=== PATIENT | female | born 1985 | race Caucasian/White ===

== ENCOUNTER 2019-10-20 09:08 | Emergency (ER) | payer OTHER ==
[2019-10-20 09:27] LABS: EPITHELIAL CELLS FEW /hpf
--- NOTE | 2019-10-20 09:35 | PDOC ---
History of Present Illness - General Chief Complaint: Pain, Acute Stated Complaint: abd pain Time Seen by Provider: 10/20/19 09:10 - History of Present Illness Initial Comments: 10/20/19 09:31 34 F with no PMH presents to ED with lower abdominal pain that began this morning. Pt states that she awoke at approx 5:30 AM with severe lower abdominal pain. She endorses nausea without vomiting. Pt states that she took motrin and applied a heating pad with minimal relief. After about 2 hours, the pain subsided. Pt states that she is currently on her period and has been bleeding for 3 days now. She notes that for the past few months, her menstrual cramps have become much more painful. She reports that she has had ovarian cysts in the past, but this does not feel the same. Pt denies F/C. Denies flank pain. Denies dysuria. Denies vaginal discharge. No prior surgical history. Past History - Past Medical History Allergies/Adverse Reactions: Allergies Allergy/AdvReac Type Severity Reaction Status Date / Time shellfish derived Allergy Severe Difficulty Verified 10/20/19 09:21 Breathing Home Medications: Ambulatory Orders Cetirizine HCl/Pseudoephedrine [Zyrtec-D Tablet] 1 each PO DAILY 10/20/19 Multivitamin [Multiple Vitamins] 1 each PO DAILY 10/20/19 Review of Systems - Review of Systems Comments:: 10/20/19 09:33 "GENERAL/CONSTITUTIONAL: No fever or chills. No weakness. HEAD, EYES, EARS, NOSE AND THROAT: No change in vision. No ear pain or discharge. No sore throat. CARDIOVASCULAR: No chest pain, no shortness of breath, no loss of consciousness RESPIRATORY: No cough, wheezing, or hemoptysis. GASTROINTESTINAL: No nausea, vomiting, diarrhea or constipation. GENITOURINARY: + lower abdominal cramps, No dysuria, frequency, or change in urination. MUSCULOSKELETAL: No joint or muscle swelling or pain. No neck or back pain. SKIN: No rash NEUROLOGIC: No vertigo, no change in strength/sensation. ENDOCRINE: No increased thirst. No abnormal weight change. HEMATOLOGIC/LYMPHATIC: No anemia, easy bleeding, or history of blood clots. ALLERGIC/IMMUNOLOGIC: No hives or skin allergy. *Physical Exam - Physical Exam 10/20/19 09:34 "GENERAL: Awake, alert, and fully oriented, in no acute distress. HEAD: No signs of trauma EYES: PERRLA, EOMI, sclera anicteric, conjunctiva clear ENT: Auricles normal inspection, hearing grossly normal, nares patent, oropharynx clear without exudates. Moist mucosa NECK: Nontender, no stepoffs, Normal ROM, supple, no lymphadenopathy, JVD, or masses LUNGS: Breath sounds equal, clear to auscultation bilaterally. No wheezes, and no crackles HEART: Regular rate and rhythm, normal S1 and S2, no murmurs, rubs or gallops ABDOMEN: + minimal suprapubic and bilateral lower quadrant tenderness, normoactive bowel sounds. No guarding, no rebound. No masses EXTREMITIES: Normal range of motion, no edema. No clubbing or cyanosis. No cords, erythema, or tenderness NEUROLOGICAL: Cranial nerves II through XII intact. 5/5 strength and sensation in all extremities, Normal speech, normal gait, normal cerebellar function SKIN: Warm, Dry, normal turgor, no rashes or lesions noted. : Blood in vault, no CMT, no adnexal masses/tenderness ED Treatment Course - LABORATORY CBC & Chemistry Diagram: 10/20/19 09:35 10/20/19 09:35 - ADDITIONAL ORDERS Additional order review: Laboratory Results 10/20/19 10/20/19 09:10 09:10 Urine Color Yellow Urine Appearance Slightly Urine pH 7.5 Urine Protein Trace Urine Glucose (UA) Negative Urine Ketones Negative Urine Blood 3+ H Urine Nitrite Negative Urine Bilirubin Negative Urine Urobilinogen 0.2 Ur Leukocyte Esterase Negative Urine RBC >100 Urine WBC 2-5 Ur Transition Epith Cell Few Urine HCG, Qual Negative - RADIOLOGY Radiology Studies Ordered: Category Date Time Status TRANSVAGINAL ULTRASOUND US [US] Stat Ultrasound 10/20/19 09:25 Ordered Medical Decision Making - Medical Decision Making 10/20/19 09:34 34 F with lower abdominal pain, on day 3 of her menstrual period. Pt reports worsening menstrual cramps, possibly indicative of endometriosis. Pt with minimal tenderness on exam currently. Will evaluate for ovarian torsion/cysts. Low suspicion for appendicitis, as pt without any fevers or vomiting. - Labs, UA, UPT - TVUS - Consider CT 10/20/19 11:26 Labs unremarkable TVUS shows no acute pathology. R ovary not visualized. However, low suspicion for torsion as pt with no pain at this time with no adnexal masses palpable on exam. Pt to see Dr. Gracia in his office today. Pt reassessed - states pain has subsided completely. Repeat abdominal exam benign. Low suspicion for acute intraabdominal process. No tenderness at mcburney's. Pt is well appearing, with normal vitals. Clinically stable for DC at this time. I discussed the physical exam findings, ancillary test results and final diagnoses with the patient. I answered all of the patient's questions. The patient was satisfied with the care received and felt comfortable with the discharge plan and treatment plan. The patient agrees to follow up with the primary care physician within 24-72 hours. Discharge - Discharge Information Problems reviewed: Yes Clinical Impression/Diagnosis: Dysmenorrhea Condition: Stable Disposition: HOME - Follow up/Referral Referrals: Nathaniel Kellogg MD [Primary Care Provider] - Silvio Gracia MD [Staff Physician] - - Patient Discharge Instructions Patient Printed Discharge Instructions: DI for Dysmenorrhea Additional Instructions: Your pain is likely related to your menstrual cycle and may be due to a condition called endometriosis. Please follow up with Dr. Gracia today for further evaluation of your pelvic pain. If you experience recurrent or severe pain, fevers, vomiting, or any other concerning symptoms, return to the ER immediately, as these may be signs of a serious or life-threatening condition. - Post Discharge Activity Work/Back to School Note: Back to Work
[2019-10-20 09:37] VITALS: TEMP 98.4; BMI 24.3
[2019-10-20 09:54] LABS: BASO % 0.6 % (0-2.0); EOS % 1.5 % (0-4.5); HEMOGLOBIN 13.7 GM/dl (10.7-15.3); MCH 28.8 pg (25.7-33.7); MCHC 32.6 g/dl (32.0-36.0); MEAN CELL VOLUME 88.3 fl (80-96); MEAN PLT VOLUME 9.7 fl (7.5-11.1); NEUT % 80.9 % (42.8-82.8); PLATELET COUNT 240 K/MM3 (134-434); RBC 4.76 M/mm3 (3.60-5.2); RDW 12.4 % (11.6-15.6); WHITE BLOOD COUNT 8.3 K/mm3 (4.0-10.8)
[2019-10-20 10:02] LABS: ALBUMIN 4.5 g/dl (3.4-5.0); BILIRUBIN,TOTAL 0.7 mg/dl (0.2-1); CALCIUM 9.6 mg/dl (8.5-10); CREATININE 0.8 mg/dl (0.55-1.3); POTASSIUM 3.9 mmol/L (3.5-5.1); TOT PROT 7.6 g/dl (6.4-8.2)
[2019-10-20 11:32] VITALS: BP 118/80; PULSE 67
== END 2019-10-20 11:35 | disposition home or self-care (01) ==
LOC: FER 09:08
DX: N94.6 Dysmenorrhea, unspecified (principal); Z91.013 Allergy to seafood
CPT/HCPCS: 36415; 76830-TC; 76856-TC; 80053; 81003; 81015; 83690; 84703; 85025; 87086; 99283-25

== ENCOUNTER 2020-08-21 18:49 | Inpatient (IN) | payer BC, OTHER ==
[2020-08-21] MEDS ORDERED: PANTOPRAZOLE SODIUM 40 MG VIAL IVPUSH ONE (19:33)
[2020-08-21] MEDS ORDERED: SODIUM CHLORIDE 0.9% 1000 ML INFUS.BAG IV ONE (19:33)
--- NOTE | 2020-08-21 19:37 | PDOC ---
History of Present Illness - General Chief Complaint: Pain, Acute Stated Complaint: abdominal pain Time Seen by Provider: 08/21/20 19:32 History Source: Patient Exam Limitations: No Limitations - History of Present Illness Initial Comments: 08/21/20 19:34 35-year-old female no past medical history here today complaining of acute onset sudden crampy abdominal pain and bloody stool. Patient states it started around 1 AM she reports having approximately 2 bloody bowel movements every hour since then pain is described as crampy epigastric region no melena. Does report taking Motrin for 4 days scheduled every month associated with menses and premenstrual cramps. Otherwise no history of prior GI bleed. No family history of ulcerative colitis or Crohn's. States she had some pork last night nobody else got sick from the food she did have chills the evening prior but denies any fevers. No recent travel no history of COVID no recent antibiotic use or other complaints pain is moderate described as crampy Past History - Medical History Allergies/Adverse Reactions: Allergies Allergy/AdvReac Type Severity Reaction Status Date / Time shellfish derived Allergy Severe Difficulty Verified 10/20/19 09:21 Breathing COPD: No - Reproductive History Is Patient Now?: No - Immunization History Immunization Up to Date: Yes - Psycho-Social/Smoking History Smoking History: Never smoked Have you smoked in the past 12 months: No Information on smoking cessation initiated: No - Substance Abuse Hx (Audit-C & DAST Scrn) How often the patient has a drink containing alcohol: Never Score: In Men: 4 or > Positive; In Women: 3 or > Positive: 0 Screen Result (Pos requires Nsg. Audit-10AR): Negative In the last yr the pt used illegal drug/Rx for NonMed reason: No Score: Yes response is considered Positive: 0 Screen Result (Positive result requires Nsg. DAST-10): Negative Review of Systems - Review of Systems Constitutional: Yes: Chills. No: Fever HEENTM: No: Eye Pain Respiratory: No: Cough, Orthopnea, Shortness of Breath Cardiac (ROS): No: Chest Pain, Edema ABD/GI: Yes: Diarrhea, Other (bloody stool) : No: Burning, Dysuria, Discharge Musculoskeletal: No: Back Pain, Gout, Joint Pain Hematologic/Lymphatic: No: Anemia All Other Systems: Reviewed and Negative *Physical Exam - Vital Signs Last Vital Signs Temp Pulse Resp BP Pulse Ox 119/84 100 08/21/20 18:50 08/21/20 18:50 - Physical Exam 08/21/20 19:35 Awake alert no acute distress no pallor noted. Lungs are clear bilaterally heart is regular tachycardia without any murmurs rubs or gallops abdomen is soft there is mild epigastric and left upper and right upper quadrant tenderness no rebound no guarding rectal exam performed with nurse Nathan present shows mucus with faint pink blood no melena no palpable stool in the rectal vault no visible hemorrhoids or fissures noted extremities are warm well perfused patient is awake alert and oriented x3 ED Treatment Course - ADDITIONAL ORDERS Additional order review: Laboratory Results 08/21/20 19:15 Stool Occult Blood Negative - RADIOLOGY Radiology Studies Ordered: Category Date Time Status ABDOMEN & PELVIS CT WITH CONTR [CT] Stat CT Scan 08/21/20 19:32 Ordered Medical Decision Making - Medical Decision Making 08/21/20 19:36 35-year-old female here today with acute onset bloody diarrhea starting at 1 AM. Differential includes anemia, infectious versus inflammatory colitis patient does not have any current risk factors for ischemic bowel would be very unlikely. Plan to obtain a CT abdomen pelvis to evaluate bowel wall thickness guaiac was sent as well as stool studies to rule out any infectious causes. She will be hydrated with normal saline patient is currently hemodynamically stable except for mild tachycardia will be hydrated with saline awaiting blood results. Discussed the case with Dr. jeaneth SR who will evaluate the patient in the ED CT abdomen and pelvis is pending patient may require admission for IV hydration due to severity of her diarrhea as well as possible IV antibiotics Case signed out to oncoming Dr. fierro awaiting CT and abdomen pelvis results and possible admission pending her evaluation results Discharge - Discharge Information Condition: Stable - Follow up/Referral Referrals: Beth Messer, RN [Primary Care Provider] - - Patient Discharge Instructions - Post Discharge Activity
[2020-08-21 19:42] LABS: HCG,QUALITATIVE URINE Negative
[2020-08-21] MEDS ORDERED: PANTOPRAZOLE SODIUM 40 MG VIAL ONE (19:45)
[2020-08-21] MEDS ORDERED: PANTOPRAZOLE 40 MG TABLET ONE (19:45)
[2020-08-21 19:49] LABS: BASO % 0.4 % (0-2.0); EOS % 0.9 % (0-4.5); HEMATOCRIT 42.7 % (32.4-45.2); HEMOGLOBIN 13.9 GM/dl (10.7-15.3); LYMPH % 14.4 % (8-40); MCH 29.3 pg (25.7-33.7); MCHC 32.6 g/dl (32.0-36.0); MEAN CELL VOLUME 89.7 fl (80-96); MEAN PLT VOLUME 9.3 fl (7.5-11.1); NEUT % 78.3 % (42.8-82.8); PLATELET COUNT 276 K/MM3 (134-434); RBC 4.76 M/mm3 (3.60-5.2); RDW 13.1 % (11.6-15.6); WHITE BLOOD COUNT 13.5 K/mm3 (4.0-10.8)
--- NOTE | 2020-08-21 19:58 | CON.GI ---
Consult - History of Present Illness History of Present Illness: Mrs. Jensen is a 35 year old woman with no significant past medical history who presents with the acute onset of crampy lower abdominal pain and multiple bouts of diarrhea followed by hematochezia. She also admits to chills and nausea. She denies melena/ vomiting/ previous similar episodes , no hx of UC / colitis. She reports eating pork the night prior. No one else became sick after eating the food / denies sick contacts/ travel. 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 This has now resolved. She has never had an endoscopic evaluation in the past. She admits to taking advil over the past few days for menstrual cramps. - History Source History Provided By: Patient Limitations to Obtaining History: No Limitations - Past Medical History [employer] HEL[employer]: No: Alzheimer's, CVA, Dementia, Migraine, Multiple Sclerosis, Peripheral Neuropathy, Parkinson's, Seizure, Syncope, TIA, Vertigo, Other Cardio/Vascular: No: AFIB, Aneurysm, Aortic Insufficiency, Aortic Stenosis, CAD, CHF, Deep Vein Thrombosis, HTN, Hyperlipdemia, OH, Mitral Insufficiency, Mitral Stenosis, Murmur, Pulmonary Hypertension, Other Pulmonary: No: Asthma, Bronchitis, Cancer, COPD, O2 Dependent, Pneumonia, Previously Intubated, Pulmonary Embolus, Pulmonary Fibrosis, Sleep Apnea, Other Gastrointestinal: No: Ascites, Cancer, Constipation, Crohn's Disease, Di verticulitis, Diverticulosis, Esophageal Varices, Gastritis, GERD, GI Bleed, Hemorrhoids, Hiatal Hernia, Inflamatory Bowel Disease, Irritable Bowel Disease, Pancreatitis, Peptic Ulcer Disease, Ulcerative Colitis, Other Hepatobiliary: No: Cirrhosis, Cholelithiasis, Cholecystitis, Choledocholithiasis, Hepatitis A, Hepatitis B, Hepatitis C, Other Renal/: No: Renal Failure, Renal Inusuff, BPH, Cancer, Hematuria, Hemodialysis, Neurogenic Bladder, Renal Calculi, UTI, Other Reproductive: No: Ectopic , Endometriosis, Fibroids, PID, Polycystic Ovary Syndrome, Postmenopausal, Other ...LMP: 08/14/20 ...: No Heme/Onc: No: Anemia, B12 Deficiency, Bleeding Disorder, Cancer, Current Chemotherapy, Current Radiation Therapy, Hemochromatosis, Hypercoaguable State, Myeloproliferative Synd, Sickle Cell Disease, Sickle Cell Trait, Thrombocy topenia, Other Infectious Disease: No: AIDS, C-Diff, Herpes Zoster, HIV, MRSA, STD's, Tuberculosis, VREF, Other Psych: No: Addictions, Anxiety, Bipolar, Depression, Panic, Psychosis, Schizophrenia, Other Musculoskeletal: No: Bursitis, Chronic low back pain, Hemiparesis, Hemiplegia, Osteoarthritis, Paraplegia, Other Rheumatology: No: Fibromyalgia, Gout, Lupus, Rheumatoid Arthritis, Sarcoidosis, Vasculitis, Other ENT: No: Allergic Rhinitis, Sinusitis, Other Endocrine: No: Quitman's Disease, Edilia's Disease, Diabetes Insipidus, Diabetes Mellitus, Hyperparathyroidism, Hyperthyroidism, Hypothyroidism, Osteopenia, SIADH, Other - Past Surgical History Past Surgical History: No: None, AAA Repair, AICD, Amputation, Appendectomy, Arthrosocopy, AV Fistula/Graft, Bariatric Surgery, Breast Biopsy, Bypass, CABG, Carotid Endarterectomy, Cataract Removal, Cholecystectomy, Colectomy, Colonoscopy, Colostomy, Craniotomy, , Cystectomy, Hernia Repair, Hysterectomy, Ileal Conduit, Ileosotomy, Joint Replacement, Kidney Transplant, Laminectomy, Liver Transplant, Mastectomy, Nephrectomy, Oopherectomy, Orchie ctomy, Permanent Pacemaker, Prostatectomy, Splenectomy, Stent, Thoracotomy, TURP, Tonsillectomy, Tubal Ligation, Upper Endoscopy, Valve Replacement, Vasectomy, Vein Stripping/Ligation - Alcohol/Substance Use Hx Alcohol Use: No - Smoking History Smoking history: Never smoked Have you smoked in the past 12 months: No - Social History Usual Living Arrangement: With Spouse Home Medications - Allergies Allergies/Adverse Reactions: Allergies Allergy/AdvReac Type Severity Reaction Status Date / Time shellfish derived Allergy Severe Difficulty Verified 08/21/20 19:39 Breathing - Home Medications Home Medications: Ambulatory Orders Bismuth Subsalicylate [Pepto-Bismol -] 524 mg PO PRN 08/21/20 Cetirizine HCl/Pseudoephedrine [Zyrtec-D Tablet] 1 each PO DAILY 08/21/20 Simethicone [Gas-X] 125 mg PO PRN 08/21/20 Family Medical History Family History: Unremarkable Review of Systems - Review of Systems Constitutional: reports: Chills Eyes: denies: No Symptoms, Blind Spots, Blurred Vision, Double Vision, Eye Pain, Floaters, Photophobia, Recent Change in Vision, Other HENT: denies: No Symptoms, Difficult Swallowing, Ear Discharge, Ear Pain, Epistaxis, Gingival Bleeding, Hearing Loss, Mouth Swelling, Nasal Congestion, Ocular Prosthesis, Throat Pain, Toothache, Ringing in Ears, Other Neck: denies: No Symptoms, Decreased ROM, Lumps, Pain on Movement, Stiffness, Swollen Glands, Tenderness, Other Cardiovascular: denies: No Symptoms, Chest Pain, Edema, Palpitations, Shortness of Breath, Other Respiratory: denies: No Symptoms, Cough, Exercise Intolerance, Hemoptysis, Orthopnea, PND, Snoring, SOB, SOB on Exertion, Wheezing, Other Gastrointestinal: reports: Diarrhea, Nausea, Rectal Bleeding Physical Exam-GI Vital Signs: Vital Signs Temperature Pulse Rate Respiratory Rate Blood Pressure 119/84 08/21/20 18:50 O2 Sat by Pulse Oximetry (%) 100 08/21/20 18:50 Constitutional: Yes: Well Nourished, No Distress, Calm Eyes: Yes: WNL HENT: Yes: WNL Neck: Yes: WNL Cardiovascular: Yes: WNL, Regular Rate and Rhythm Respiratory: Yes: WNL, Regular, CTA Bilaterally Gastrointestinal Inspection: Yes: WNL ...Auscultate: Yes: Normoactive Bowel Sounds ...Palpate: Yes: Other (not tender ; nml bowel sounds) Extremities: Yes: WNL Edema: No Labs: CBC, BMP 08/21/20 19:37 Imaging - Results Chest X-ray: Pending Cat Scan: Pending Problem List - Problems (1) Diarrhea Assessment/Plan: Impression: acute diarrhea with associated hematochezia most likely infectious etiology REC: - ct scan abd / pelvis with contrast - clear liquid diet - gentle hydration - stool cultures ova / parasite / leukocyte / c.diff pcr - GI pcr panel - empiric levaquin 500 mg IV daily / flagyl 500 mg IV q8 - once vinny acute process resolves would benefit from a colonoscopy. Code(s): R19.7 - DIARRHEA, UNSPECIFIED
[2020-08-21 20:02] LABS: EPITHELIAL CELLS MODERATE /hpf
[2020-08-21 20:05] LABS: ALBUMIN 3.8 g/dl (3.4-5.0); BILIRUBIN,TOTAL 0.6 mg/dl (0.2-1); CALCIUM 8.5 mg/dl (8.5-10); CREATININE 0.7 mg/dl (0.55-1.3); POTASSIUM 3.2 mmol/L (3.5-5.1); TOT PROT 6.6 g/dl (6.4-8.2)
--- NOTE | 2020-08-21 20:17 | PDOC ---
*Physical Exam - Vital Signs Last Vital Signs Temp Pulse Resp BP Pulse Ox 119/84 100 08/21/20 18:50 08/21/20 18:50 ED Treatment Course - LABORATORY CBC & Chemistry Diagram: 08/21/20 19:37 08/21/20 19:13 - ADDITIONAL ORDERS Additional order review: Laboratory Results 08/21/20 08/21/20 08/21/20 19:30 19:15 19:13 Sodium 139 Potassium 3.2 L Chloride 109 H Carbon Dioxide 21 Anion Gap 9 BUN 11.0 Creatinine 0.7 Est GFR (CKD-EPI)AfAm 130.10 Est GFR (CKD-EPI)NonAf 112.25 Random Glucose 96 Calcium 8.5 Total Bilirubin 0.6 AST 19 ALT 27 Alkaline Phosphatase 42 L Total Protein 6.6 Albumin 3.8 Urine Color Yellow Urine Appearance Clear Urine pH 7.0 Urine Protein 1+ H Urine Glucose (UA) Negative Urine Ketones 1+ H Urine Blood 2+ H Urine Nitrite Negative Urine Bilirubin 1+ H Urine Urobilinogen 0.2 Ur Leukocyte Esterase Negative Urine RBC 5-10 Urine WBC 2-5 Ur Transition Epith Cell Moderate Urine Bacteria Moderate Urine HCG, Qual Negative Stool Occult Blood Negative 08/21/20 19:37 RBC 4.76 MCV 89.7 MCHC 32.6 RDW 13.1 MPV 9.3 Neutrophils % 78.3 Lymphocytes % 14.4 Monocytes % 6.0 Eosinophils % 0.9 Basophils % 0.4 - Medications Given in the ED: ED Medications Discontinued Medications Generic Name Dose Route Start Last Admin Trade Name Freq PRN Reason Stop Dose Admin Pantoprazole Sodium 40 mg 08/21/20 19:33 08/21/20 19:52 Protonix Iv IVPUSH 08/21/20 19:34 40 mg ONCE ONE Administration Sodium Chloride 1,000 ml 08/21/20 19:33 08/21/20 19:48 Normal Saline - IV 08/21/20 19:34 1,000 ml ONCE ONE Administration ED Progress Note - Progress Note Progress Note: Care of this patient received from Dr. Yen This 35-year-old woman presented with abdominal pain and bloody diarrhea Patient was consulted in the ER by Dr. Street: IV Levaquin 500 mg and IV Flagyl 500 mg suggested to treat presumed infectious colitis while awaiting further work-up. His medications were ordered and given to the patient. Abdominal/pelvic CT performed (no IV contrast because of patient's seafood allergy): Image interpreted by Dr. Aranda of the radiology staffdescending colon and sigmoid colon wall edema consistent with acute infectious or inflammatory colitis. No other significant abnormality seen Medical Decision Making - Medical Decision Making [facility] by RONNI Hernandez Discharge - Discharge Information Problems reviewed: Yes Clinical Impression/Diagnosis: Acute colitis Condition: Stable - Admission Yes - Follow up/Referral - Patient Discharge Instructions - Post Discharge Activity
--- OUTSIDE RECORDS SUMMARY | 2020-08-21 22:32 | XMS ---
:1985 Author Organization [facility] Support Name Relationship Address Phone [facility] Unavailable [address] [phone] [place] [address] GRACE BECERRA [address] [place] [address] [facility] Unavailable Unavailable Unavailable Re-disclosure Warning The records that you are about to access may contain information from federally- assisted alcohol or drug abuse programs. If such information is present, then the following federally mandated warning applies: This information has been disclosed to you from records protected by federal confidentiality rules (42 CFR part 2). The federal rules prohibit you from making any further disclosure of this information unless further disclosure is expressly permitted by the written consent of the person to whom it pertains or as otherwise permitted by 42 CFR part 2. A general authorization for the release of medical or other information is NOT sufficient for this purpose. The Federal rules restrict any use of the information to criminally investigate or prosecute any alcohol or drug abuse patient.The records that you are about to access may contain highly sensitive health information, the redisclosure of which is protected by Article 27-F of the [facility] Public Health law. If you continue you may haveaccess to information: Regarding HIV / AIDS; Provided by facilities licensed or operated by the [facility] Office of Mental Health; or Provided by the [facility] Office for People With Developmental Disabilities. If such information is present, then the following [facility] mandated warning applies: This information has been disclosed to you from confidential records which are protected by state law. State law prohibits you from making any further disclosure of this information without the specific written consent of the person to whom it pertains, or as otherwise permitted by law. Any unauthorized further disclosure in violation of state law may result in a fine or [place] health [facility] sentence or both. A general authorization for the release of medical or other information is NOT sufficient authorization for further disclosure. Insurance Providers Payer name Policy type Policy ID Covered Covered alliance party's Policy P kelvin / Coverage alliance party ID relationship to [employer] Inf ormation type zapata OUT OF [id number] SP [id number] [facility] [id number] [employer]ANS [facility] [id number] SP [id number]
[2020-08-21] MEDS ORDERED: POTASSIUM CHLORIDE TABS 20 MEQ TABLET.ER (FP) PO ONE ×3 (22:52→23:04)
[2020-08-21] MEDS ORDERED: SODIUM CHLORIDE 1,000 ML IV SCH (23:45)
[2020-08-21 23:56] VITALS: BMI 26.9
--- NOTE | 2020-08-21 23:59 | HP ---
CHIEF COMPLAINT: abdominal cramps , diarrhea, chills and bloody stool PCP: HISTORY OF PRESENT ILLNESS: 35 year old female with no significant past medical history who presents with the acute onset of cramps to lower abdomen with pain and multiple episodes of diarrhea followed by hematochezia. She also reported chills and nausea. She denied melena,vomiting, previous similar episodes , no hx of UC /colitis. She reports eating pork the night prior. She admits to taking advil over the past few days for menstrual cramps. ER course notable for: CT Abdomen showed diffuse thickening of the descending colon as well as proximal and mid sigmoid colon with surrounding fat and free fluid. Findings concerning f or colitis, inflammation versus infectious process. WBC 13,500, lactic acid 1.6. She was seen by Gastroenterology- Dr. Street. She was recommeded IV levaquin and flagyl, gentle hydration and clear liquids. Hypokalemia- repleted. Recent Travel: no PAST MEDICAL HISTORY: none PAST SURGICAL HISTORY: none Social History: Smoking:no Alcohol:no Drugs:no Allergies shellfish derived Allergy (Severe, Verified 08/21/20 19:39) Difficulty Breathing HOME MEDICATIONS: Home Medications Medication Instructions Recorded Bismuth Subsalicylate 524 mg PO PRN 08/21/20 [Pepto-Bismol -] Cetirizine HCl/Pseudoephedrine 1 each PO DAILY 08/21/20 [Zyrtec-D Tablet] Simethicone [Gas-X] 125 mg PO PRN 08/21/20 REVIEW OF SYSTEMS CONSTITUTIONAL: Absent: fever, chills, diaphoresis, generalized weakness, malaise, loss of appetite, weight change HEENT: Absent: rhinorrhea, nasal congestion, throat pain, throat swelling, difficulty swallowing, mouth swelling, ear pain, eye pain, visual changes CARDIOVASCULAR: Absent: chest pain, syncope, palpitations, irregular heart rate, lightheadedness, peripheral edema RESPIRATORY: Absent: cough, shortness of breath, dyspnea with exertion, orthopnea, wheezing, stridor, hemoptysis GASTROINTESTINAL: Absent: abdominal pain, abdominal distension, nausea, vomiting, diarrhea, constipation, melena, hematochezia GENITOURINARY: Absent: dysuria, frequency, urgency, hesitancy, hematuria, flank pain, genital pain MUSCULOSKELETAL: Absent: myalgia, arthralgia, joint swelling, back pain, neck pain SKIN: Absent: rash, itching, pallor HEMATOLOGIC/IMMUNOLOGIC: Absent: easy bleeding, easy bruising, lymphadenopathy, frequent infections ENDOCRINE: Absent: unexplained weight gain, unexplained weight loss, heat intolerance, cold intolerance NEUROLOGIC: Absent: headache, focal weakness or paresthesias, dizziness, unsteady gait, seizure, mental status changes, bladder or bowel incontinence PSYCHIATRIC: Absent: anxiety, depression, suicidal or homicidal ideation, hallucinations. PHYSICAL EXAMINATION Vital Signs - 24 hr 08/21/20 08/21/20 08/21/20 18:50 22:58 23:05 Temperature 98.5 F 98.4 F Pulse Rate 100 H Pulse Rate [ 114 H Right Radial] Respiratory 18 Rate Blood Pressure 119/84 111/76 Blood Pressure 122/80 [Left Arm] O2 Sat by Pulse 100 100 100 Oximetry (%) General no acute distress Vital signs reviewed afebrile Neuor no focal defcits Neck supple no JVD Lungs CTA nonlabored breathing effort no rales no wheezing Heart s1s2 rate regular no murmurs Abdomen soft nontender to light palpation Extremities warm to touch no pitting edema Skin nail beds and lips pink Mood calm Laboratory Results - last 24 hr 08/21/20 08/21/20 08/21/20 19:13 19:15 19:30 WBC RBC Hgb Hct MCV MCH MCHC RDW Plt Count MPV Absolute Neuts (auto) Neutrophils % Lymphocytes % Monocytes % Eosinophils % Basophils % Sodium 139 Potassium 3.2 L Chloride 109 H Carbon Dioxide 21 Anion Gap 9 BUN 11.0 Creatinine 0.7 Est GFR (CKD-EPI)AfAm 130.10 Est GFR (CKD-EPI)NonAf 112.25 Random Glucose 96 Lactic Acid Calcium 8.5 Total Bilirubin 0.6 AST 19 ALT 27 Alkaline Phosphatase 42 L Total Protein 6.6 Albumin 3.8 Urine Color Yellow Urine Appearance Clear Urine pH 7.0 Urine Protein 1+ H Urine Glucose (UA) Negative Urine Ketones 1+ H Urine Blood 2+ H Urine Nitrite Negative Urine Bilirubin 1+ H Urine Urobilinogen 0.2 Ur Leukocyte Esterase Negative Urine RBC 5-10 Urine WBC 2-5 Ur Transition Epith Cell Moderate Urine Bacteria Moderate Urine HCG, Qual Negative Stool Occult Blood Negative 08/21/20 08/21/20 19:37 19:37 WBC 13.5 H RBC 4.76 Hgb 13.9 Hct 42.7 MCV 89.7 MCH 29.3 MCHC 32.6 RDW 13.1 Plt Count 276 MPV 9.3 Absolute Neuts (auto) 10.6 Neutrophils % 78.3 Lymphocytes % 14.4 Monocytes % 6.0 Eosinophils % 0.9 Basophils % 0.4 Sodium Potassium Chloride Carbon Dioxide Anion Gap BUN Creatinine Est GFR (CKD-EPI)AfAm Est GFR (CKD-EPI)NonAf Random Glucose Lactic Acid 1.6 Calcium Total Bilirubin AST ALT Alkaline Phosphatase Total Protein Albumin Urine Color Urine Appearance Urine pH Urine Protein Urine Glucose (UA) Urine Ketones Urine Blood Urine Nitrite Urine Bilirubin Urine Urobilinogen Ur Leukocyte Esterase Urine RBC Urine WBC Ur Transition Epith Cell Urine Bacteria Urine HCG, Qual Stool Occult Blood ASSESSMENT/PLAN: 35 year old female with no past medical history who presents with the acute onset of cramps to lower abdomen and multiple episodes of diarrhea followed by hematochezia associated with chills and nausea. CT scan of abdomen showed inflammatory changes. She is being admitted to the Medical Team for further oh dical treatment for colitis. #1 Colitis/Inflammatory versus Infectious Process WBC 13,500, normal lactic acid currently afebrile and pain free seen by GI - Dr. Street c/w clear liquids and gentle hydration c/w IV levaquin 500mg daily and flagyl 500mg q8hr repeat CBc in am #2 Hypokalemia repleted repeat BMP in am #3 Rule Out COVID follow up on COVD tests maintain o2 sat >90% maintain strict isolation precautions for contact and droplet DVT Prophylaxis OOB as tolerated FEN IVF NS @ 50cc/hr BMP daily and replete electrolytes as needed clear liquid diet and advance as tolerated in am Kimberley Kwong N.P. Family Medical History Family History: Denies Visit type - Emergency Visit Emergency Visit: Yes ED Registration Date: 08/21/20 Care time: The patient presented to the Emergency Department on the above date and was hospitalized for further evaluation of their emergent condition. - New Patient This patient is new to me today: Yes Date on this admission: 08/22/20 - Critical Care Critical Care patient: No
[2020-08-22 08:16] LABS: CREATININE 0.7 mg/dl (0.55-1.3); MAGNESIUM 1.9 mg/dL (1.8-2.4); POTASSIUM 4.3 mmol/L (3.5-5.1)
[2020-08-22 08:17] LABS: HEMOGLOBIN 13.2 GM/dl (10.7-15.3); MCH 29.1 pg (25.7-33.7); MCHC 32.9 g/dl (32.0-36.0); MEAN CELL VOLUME 88.3 fl (80-96); MEAN PLT VOLUME 9.5 fl (7.5-11.1); PLATELET COUNT 240 K/MM3 (134-434); RBC 4.53 M/mm3 (3.60-5.2); RDW 12.9 % (11.6-15.6); WHITE BLOOD COUNT 10.8 K/mm3 (4.0-10.8)
--- NOTE | 2020-08-22 08:22 | PN.GI ---
GI Progress Note Subjective: no new complaints feeling better less abd pain and diarrhea tolerating clear liquid diet - Objective Vital Signs: Vital Signs Temperature 98.7 F 08/22/20 05:01 Pulse Rate 106 H 08/22/20 05:01 Respiratory Rate 18 08/22/20 05:01 Blood Pressure 115/74 08/22/20 05:01 O2 Sat by Pulse Oximetry (%) 98 08/22/20 05:01 Constitutional: Well Nourished, No Distress, Calm Eyes: Yes: WNL HENT: Yes: WNL Neck: Yes: WNL, Supple Cardiovascular: Yes: WNL, Regular Rate and Rhythm Respiratory: Yes: WNL, Regular, CTA Bilaterally Gastrointestinal Inspection: Yes: WNL ...Auscultate: Yes: Normoactive Bowel Sounds Edema: No Labs: CBC, BMP 08/21/20 19:13 Problem List - Problems (1) Diarrhea Assessment/Plan: Ct scan reviewed - colitis REC: - advance to full liquid diet if tolerates advance to low residue lactose free diet - stool cultures ova / parasite / leukocyte / c.diff pcr- pending - GI pcr panel pending - c/w levaquin 500 mg IV daily / flagyl 500 mg IV q8 - 7 day total course - once the acute process resolves would benefit from a colonoscopy. - if she tolerates full diet and her pain is improved she can be discharged tomorrow morning. Code(s): R19.7 - DIARRHEA, UNSPECIFIED
--- NOTE | 2020-08-22 15:09 | PN ---
Physical Exam: SUBJECTIVE: Patient seen and examined. Feeling better. Has not had any further episodes of bloody stool since arrival to the floor last night. Has been tolerating clears, no abdominal pain. OBJECTIVE: Vital Signs Period Temp Pulse Resp BP Sys/Loo Pulse Ox Last 24 Hr 97.6 F-98.7 F 97-114 16-18 111-125/74-84 98-100 GENERAL: The patient is awake, alert, and fully oriented, in no acute distress. LUNGS: Breath sounds equal, clear to auscultation bilaterally, no wheezes, no crackles, no accessory muscle use. HEART: Regular rate and rhythm, S1, S2 without murmur, rub or gallop. ABDOMEN: Soft, nontender, nondistended EXTREMITIES: 2+ pulses, warm, well-perfused, no edema. NEUROLOGICAL: Cranial nerves II through XII grossly intact. Normal speech, gait not observed. Laboratory Results - last 24 hr 08/21/20 08/21/20 08/21/20 19:13 19:15 19:30 WBC RBC Hgb Hct MCV MCH MCHC RDW Plt Count MPV Absolute Neuts (auto) Neutrophils % Lymphocytes % Monocytes % Eosinophils % Basophils % Sodium 139 Potassium 3.2 L Chloride 109 H Carbon Dioxide 21 Anion Gap 9 BUN 11.0 Creatinine 0.7 Est GFR (CKD-EPI)AfAm 130.10 Est GFR (CKD-EPI)NonAf 112.25 Random Glucose 96 Lactic Acid Calcium 8.5 Magnesium Total Bilirubin 0.6 AST 19 ALT 27 Alkaline Phosphatase 42 L Total Protein 6.6 Albumin 3.8 Urine Color Yellow Urine Appearance Clear Urine pH 7.0 Urine Protein 1+ H Urine Glucose (UA) Negative Urine Ketones 1+ H Urine Blood 2+ H Urine Nitrite Negative Urine Bilirubin 1+ H Urine Urobilinogen 0.2 Ur Leukocyte Esterase Negative Urine RBC 5-10 Urine WBC 2-5 Ur Transition Epith Cell Moderate Urine Bacteria Moderate Urine HCG, Qual Negative Stool Occult Blood Negative 08/21/20 08/21/20 08/22/20 19:37 19:37 07:03 WBC 13.5 H 10.8 RBC 4.76 4.53 Hgb 13.9 13.2 Hct 42.7 40.0 MCV 89.7 88.3 MCH 29.3 29.1 MCHC 32.6 32.9 RDW 13.1 12.9 Plt Count 276 240 MPV 9.3 9.5 Absolute Neuts (auto) 10.6 Neutrophils % 78.3 Lymphocytes % 14.4 Monocytes % 6.0 Eosinophils % 0.9 Basophils % 0.4 Sodium Potassium Chloride Carbon Dioxide Anion Gap BUN Creatinine Est GFR (CKD-EPI)AfAm Est GFR (CKD-EPI)NonAf Random Glucose Lactic Acid 1.6 Calcium Magnesium Total Bilirubin AST ALT Alkaline Phosphatase Total Protein Albumin Urine Color Urine Appearance Urine pH Urine Protein Urine Glucose (UA) Urine Ketones Urine Blood Urine Nitrite Urine Bilirubin Urine Urobilinogen Ur Leukocyte Esterase Urine RBC Urine WBC Ur Transition Epith Cell Urine Bacteria Urine HCG, Qual Stool Occult Blood 08/22/20 07:03 WBC RBC Hgb Hct MCV MCH MCHC RDW Plt Count MPV Absolute Neuts (auto) Neutrophils % Lymphocytes % Monocytes % Eosinophils % Basophils % Sodium 139 Potassium 4.3 Chloride 109 H Carbon Dioxide 23 Anion Gap 7 L BUN 10.0 Creatinine 0.7 Est GFR (CKD-EPI)AfAm 130.10 Est GFR (CKD-EPI)NonAf 112.25 Random Glucose 117 H Lactic Acid Calcium 9.0 Magnesium 1.9 Total Bilirubin AST ALT Alkaline Phosphatase Total Protein Albumin Urine Color Urine Appearance Urine pH Urine Protein Urine Glucose (UA) Urine Ketones Urine Blood Urine Nitrite Urine Bilirubin Urine Urobilinogen Ur Leukocyte Esterase Urine RBC Urine WBC Ur Transition Epith Cell Urine Bacteria Urine HCG, Qual Stool Occult Blood Active Medications Generic Name Dose Route Start Last Admin Trade Name Freq PRN Reason Stop Dose Admin Sodium Chloride 1,000 mls @ 50 mls/hr 08/21/20 23:45 08/22/20 00:09 Normal Saline - IV 08/22/20 23:49 50 mls/hr ASDIR ELISABETH Administration Metronidazole 500 mg in 100 mls @ 100 mls/hr 08/22/20 04:45 08/22/20 10:59 Flagyl 500mg Premixed Ivpb - IVPB 100 mls/hr Q8H-IV ELISABETH Administration Levofloxacin 500 mg in 100 mls @ 100 mls/hr 08/22/20 10:00 08/22/20 09:29 Levaquin 500 Mg Premixed Ivpb - IVPB 100 mls/hr DAILY ELISABETH Administration Protocol ASSESSMENT/PLAN 35 year-old female with no significant PMH, admitted for colitis. Colitis --CTAP: diffuse thickening of the descending colon, and the proximal and mid- sigmoid colon with stranding --continue metronidazole and levofloxcin --stool studies pending --seen and evaluated by GI Dr. Street Tachycardia --mildly tachycardic, check orthostatics, additional IV fluids if indicated COVID pending FEN Fluids: NS@50mL/hr Electrolytes: replete as indicated Nutrition: advancing this evening to lactose free, low residue DVT prophylaxis: oob, ambulation Dispo: continues to require inpatient care. Full code. Visit type - Emergency Visit Emergency Visit: Yes ED Registration Date: 08/21/20 Care time: The patient presented to the Emergency Department on the above date and was hospitalized for further evaluation of their emergent condition. - New Patient This patient is new to me today: Yes Date on this admission: 08/22/20 - Critical Care Critical Care patient: No
[2020-08-22] MEDS ORDERED: SODIUM CHLORIDE 1,000 ML IV STA (15:24)
[2020-08-22] MEDS ORDERED: SODIUM CHLORIDE 1,000 ML IV SCH (15:25)
[2020-08-23 06:03] VITALS: BP 128/78; PULSE 90; TEMP 97.8
[2020-08-23] MEDS ORDERED: metroNIDAZOLE 500 MG TABLET PO ONE ×2 (06:51)
--- NOTE | 2020-08-23 06:54 | DS ---
Physical Exam: SUBJECTIVE: Patient seen and examined. Feels well. Tolerating low residue diet. No abdominal pain. Has not had BM since admission. OBJECTIVE: Vital Signs Period Temp Pulse Resp BP Sys/Loo Pulse Ox Last 24 Hr 97.6 F-98.6 F 90-115 16-18 116-128/75-83 99-100 PHYSICAL EXAM GENERAL: The patient is awake, alert, and fully oriented, in no acute distress. LUNGS: Breath sounds equal, clear to auscultation bilaterally, no wheezes, no crackles, no accessory muscle use. HEART: Regular rate and rhythm, S1, S2 without murmur, rub or gallop. ABDOMEN: Soft, nontender, nondistended EXTREMITIES: 2+ pulses, warm, well-perfused, no edema. NEUROLOGICAL: Cranial nerves II through XII grossly intact. Normal speech, gait not observed. LABS Laboratory Results - last 24 hr 08/22/20 08/22/20 07:03 07:03 WBC 10.8 RBC 4.53 Hgb 13.2 Hct 40.0 MCV 88.3 MCH 29.1 MCHC 32.9 RDW 12.9 Plt Count 240 MPV 9.5 Sodium 139 Potassium 4.3 Chloride 109 H Carbon Dioxide 23 Anion Gap 7 L BUN 10.0 Creatinine 0.7 Est GFR (CKD-EPI)AfAm 130.10 Est GFR (CKD-EPI)NonAf 112.25 Random Glucose 117 H Calcium 9.0 Magnesium 1.9 HOSPITAL COURSE: Date of Admission:08/21/20 Date of Discharge: 08/23/20 Pre hospital course 35 year-old female with no significant past medical history presented with acute onset of cramps to lower abdomen and multiple episodes of diarrhea followed by hematochezia. She also reported chills and nausea. She denied melena,vomiting, previous similar episodes, no hx of UC /colitis. She reported eating pork the night prior. She admitted to taking advil over the past few days for menstrual cramps. ER course notable for: * CT Abdomen showed diffuse thickening of the descending colon as well as proximal and mid sigmoid colon with surrounding fat and free fluid. Findings concerning for colitis, inflammation versus infectious process. * WBC 13,500, lactic acid 1.6. Subsequent hospital course Colitis --treated with IV metronidazole and levofloxcin --no further episodes of blood per rectum; tolerating low residue diet --stool studies were not done because patient did not have a BM during admission; prior to admission gave stool sample to Urgent Care center, Dr. Street aware --outpatient followup [facility] Dr. Street Orthostatic hypotension --improved with IV fluids COVID pending at time of discharge Minutes to complete discharge: 35 Discharge Summary Problems reviewed: Yes Reason For Visit: abdominal pain Current Active Problems Acute colitis (Acute) Diarrhea (Acute) Condition: Improved - Instructions Diet, Activity, Other Instructions: Two prescriptions have been sent to your pharmacy. One is for levofloxacin, one is for metronidazole. Both are antibiotics. Take these medications as directed and be sure to finish all the medication. Please follow up with Dr. Street at your earliest opportunity. Referrals: Aida Street DO [Staff Physician] - Disposition: HOME - Home Medications Comprehensive Discharge Medication List: Ambulatory Orders Naproxen 500 mg PO BID PRN #14 tablet 04/23/18 Ondansetron [Zofran Odt -] 4 mg GT BID PRN #20 tab.rapdis 04/23/18 Bismuth Subsalicylate [Pepto-Bismol -] 524 mg PO PRN 08/21/20 Cetirizine HCl/Pseudoephedrine [Zyrtec-D Tablet] 1 each PO DAILY 08/21/20 Simethicone [Gas-X] 125 mg PO PRN 08/21/20 This patient is new to me today: No Emergency Visit: Yes ED Registration Date: 08/21/20 Care time: The patient presented to the Emergency Department on the above date and was hospitalized for further evaluation of their emergent condition. Critical Care patient: No - Discharge Referral Referred to [facility] No
== END 2020-08-23 07:30 | disposition home or self-care (01) | DRG 392 ==
LOC: FER 18:49 → FM/S 22:22 → UNDOADMIN 22:29 → FM/S 22:29
PROVIDERS: ADMIT Hospitalist; ATTEND Nurse Practitioner Acute Care
DX: A09 Infectious gastroenteritis and colitis, unspecified (principal); E87.6 Hypokalemia; R00.0 Tachycardia, unspecified; I95.1 Orthostatic hypotension
CPT/HCPCS: 36415; 74176-TC; 80048; 80053; 81003; 81015; 82272; 83605; 83735; 84703; 85025; 85027; 87086; 99285-25; C9803; U0003

== ENCOUNTER 2020-10-20 06:46 | Day surgery (SDC) | payer BC ==
[2020-10-18 16:36] VITALS: BMI 25.0
[2020-10-20] MEDS ORDERED: LIDOCAINE HCL/PF 2% SDV 5ML VIAL ONE (09:18)
[2020-10-20] MEDS ORDERED: PROPOFOL 20 ML ONE (09:18)
[2020-10-20 10:20] VITALS: TEMP 98.2
[2020-10-20 10:43] VITALS: BP 114/60; PULSE 68
== END 2020-10-20 11:00 | disposition home or self-care (01) ==
LOC: FASU-ENDO 06:46
PROVIDERS: ATTEND Internal Medicine Gastroenterology
PROC: 0DBL8ZX Excision of Transverse Colon, Via Natural or Artificial Opening Endoscopic, Diagnostic (ICD-10-PCS; 2020-10-20)
PROC: 0DBP8ZX Excision of Rectum, Via Natural or Artificial Opening Endoscopic, Diagnostic (ICD-10-PCS; 2020-10-20)
PROC: 0DBF8ZX Excision of Right Large Intestine, Via Natural or Artificial Opening Endoscopic, Diagnostic (ICD-10-PCS; 2020-10-20)
PROC: 0DBM8ZX Excision of Descending Colon, Via Natural or Artificial Opening Endoscopic, Diagnostic (ICD-10-PCS; principal; 2020-10-20 09:47)
DX: R10.9 Unspecified abdominal pain (principal); K64.8 Other hemorrhoids
CPT/HCPCS: 84703; 88305-TC

== ENCOUNTER 2022-01-06 08:06 | Emergency (ER) | payer BC ==
[2022-01-06] MEDS ORDERED: ONDANSETRON 4 MG/2 ML VIAL ONE (08:26)
[2022-01-06] MEDS ORDERED: ACETAMINOPHEN INJECTION 100 ML IVPB ONE (08:26)
[2022-01-06] MEDS ORDERED: ACETAMINOPHEN 1000 MG/100 ML BAG IVPB ONE (08:27)
[2022-01-06] MEDS ORDERED: ONDANSETRON 4 MG/2 ML VIAL IVPUSH ONE (08:27)
[2022-01-06] MEDS ORDERED: SODIUM CHLORIDE 0.9% 500 ML INFUS.BAG IV ONE (08:27)
[2022-01-06 08:35] VITALS: TEMP 98.7; BMI 24.3
[2022-01-06 09:20] LABS: BILIRUBIN,TOTAL 0.8 mg/dl (0.2-1); CREATININE 0.8 mg/dl (0.55-1.3); TOT PROT 6.9 g/dl (6.4-8.2)
[2022-01-06 10:50] LABS: HEMATOCRIT 42.4 % (32.4-45.2); HEMOGLOBIN 14.3 GM/dL (10.7-15.3); MCH 29.8 pg (25.7-33.7); MCHC 33.7 g/dl (32.0-36.0); MEAN CELL VOLUME 88.2 fl (80-96); MEAN PLT VOLUME 9.6 fl (7.5-11.1); PLATELET COUNT 196 10^3/uL (134-434); RDW 13.2 % (11.6-15.6); WHITE BLOOD COUNT 7.5 K/mm3 (4.0-10.0)
[2022-01-06 11:15] VITALS: BP 110/69; PULSE 88
[2022-01-06 12:02] LABS: ANISOCYTOSIS 0; HELMET CELLS 0; HOWELL-JOLLY BODIES 0; MACROCYTOSIS 0; OVALOCYTE 0; ROULEAU 0; SICKELED CELLS 0; TARGET CELLS 0; TEAR DROP CELLS 0; TOXIC GRANULATION 0
== END 2022-01-06 11:24 | disposition home or self-care (01) ==
LOC: FER 08:06
PROC: 3E0333Z Introduction of Anti-inflammatory into Peripheral Vein, Percutaneous Approach (ICD-10-PCS; principal; 2022-01-06)
PROC: 3E033GC Introduction of Other Therapeutic Substance into Peripheral Vein, Percutaneous Approach (ICD-10-PCS; 2022-01-06)
DX: R11.2 Nausea with vomiting, unspecified (principal)
CPT/HCPCS: 36415; 80053; 84703; 85025; 99284-25

== ENCOUNTER 2022-08-26 03:38 | Emergency (ER) | payer BC ==
[2022-08-26 03:46] VITALS: BP 131/81; PULSE 80; RESP 17; TEMP 97.4; BMI 24.1
[2022-08-26] MEDS ORDERED: ACETAMINOPHEN 1000 MG/100 ML BAG IVPB ONE (03:51)
[2022-08-26] MEDS ORDERED: SODIUM CHLORIDE 1,000 ML IV STA (03:51)
[2022-08-26] MEDS ORDERED: ONDANSETRON 4 MG/2 ML VIAL IVPUSH ONE (03:51)
[2022-08-26] MEDS ORDERED: FAMOTIDINE 20 MG/50 ML IVPB 50 ML IVPB ONE (03:52)
[2022-08-26] MEDS ORDERED: ACETAMINOPHEN INJECTION 100 ML IVPB ONE (03:56)
[2022-08-26] MEDS ORDERED: ONDANSETRON 4 MG/2 ML VIAL ONE (03:56)
[2022-08-26] MEDS ORDERED: FAMOTIDINE 20 MG/50 ML IVPB 20 MG/50 ML MG IVPB ONE ×2 (04:11→04:14)
[2022-08-26 05:11] LABS: BASO % 0.7 % (0-2.0); EOS % 1.5 % (0-4.5); HEMATOCRIT 40.9 % (32.4-45.2); HEMOGLOBIN 13.4 GM/dL (10.7-15.3); LYMPH % 14.8 % (8-40); MCH 28.9 pg (25.7-33.7); MCHC 32.8 g/dl (32.0-36.0); MEAN PLT VOLUME 9.8 fl (7.5-11.1); MONO % 5.1 % (3.8-10.2); NEUT % 77.9 % (42.8-82.8); PLATELET COUNT 263 10^3/uL (134-434); RBC 4.65 M/mm3 (3.60-5.2); RDW 13.2 % (11.6-15.6); WHITE BLOOD COUNT 10.4 K/mm3 (4.0-10.0)
[2022-08-26 05:13] LABS: URINE APPEARANCE CLEAR; URINE BILIRUBIN NEGATIVE (NEGATIVE); URINE COLOR YELLOW; URINE GLUCOSE (UA) NEGATIVE (NEGATIVE); URINE KETONE NEGATIVE (NEGATIVE); URINE LEUK ESTERASE NEGATIVE (NEGATIVE); URINE NITRITE NEGATIVE (NEGATIVE); URINE PROTEIN NEGATIVE (NEGATIVE); URINE UROBILINOGEN 0.2 mg/dL (0.2-1.0)
[2022-08-26 05:18] LABS: HCG,QUALITATIVE URINE Negative
[2022-08-26 05:32] LABS: BLOOD UREA NITROGEN 12.5 mg/dL (7-18); CALCIUM 9.6 mg/dL (8.5-10.1)
[2022-08-26 05:35] LABS: CREATININE 0.8 mg/dL (0.55-1.3)
[2022-08-26 05:37] LABS: BILIRUBIN,TOTAL 0.4 mg/dL (0.2-1); TOT PROT 7.5 g/dl (6.4-8.2)
[2022-08-26] MEDS ORDERED: metroNIDAZOLE 500 MG TABLET PO ONE (06:38)
[2022-08-26] MEDS ORDERED: metroNIDAZOLE 250 MG TABLET ONE (06:42)
== END 2022-08-26 07:00 | disposition home or self-care (01) ==
LOC: FER 03:38
PROC: 3E0333Z Introduction of Anti-inflammatory into Peripheral Vein, Percutaneous Approach (ICD-10-PCS; principal; 2022-08-26)
PROC: 3E033GC Introduction of Other Therapeutic Substance into Peripheral Vein, Percutaneous Approach (ICD-10-PCS; 2022-08-26)
PROC: 3E033GC Introduction of Other Therapeutic Substance into Peripheral Vein, Percutaneous Approach (ICD-10-PCS; 2022-08-26)
PROC: 3E0337Z Introduction of Electrolytic and Water Balance Substance into Peripheral Vein, Percutaneous Approach (ICD-10-PCS; 2022-08-26)
DX: K51.90 Ulcerative colitis, unspecified, without complications (principal)
CPT/HCPCS: 36415; 74177-TC; 76700-TC; 80053; 81003; 83690; 84703; 85025; 87086; 99285-25; Q9967

== ENCOUNTER 2022-10-09 09:44 | Emergency (ER) | payer BC ==
[2022-10-09 10:03] VITALS: BP 128/96; PULSE 113; RESP 18; TEMP 99.1; BMI 27.4
== END 2022-10-09 10:18 | disposition home or self-care (01) ==
LOC: FER 09:44
DX: J09.X2 Influenza due to identified novel influenza A virus with other respiratory manifestations (principal)
CPT/HCPCS: 0241U-QW; 99283-25

== ENCOUNTER 2022-10-13 18:35 | Emergency (ER) | payer BC ==
[2022-10-13] MEDS ORDERED: SODIUM CHLORIDE 1,000 ML IV STA (18:42)
[2022-10-13 19:34] VITALS: BP 135/88; PULSE 83; RESP 16; TEMP 97.9; BMI 27.1
[2022-10-13 19:42] LABS: HEMATOCRIT 35.9 % (32.4-45.2); HEMOGLOBIN 12.9 G/dL (10.7-15.3); MCH 31.3 pg (25.7-33.7); MCHC 35.9 g/dl (32.0-36.0); MEAN CELL VOLUME 87.1 fl (80-96); MEAN PLT VOLUME 8.8 fl (7.5-11.1); PLATELET COUNT 195.8 10^3/uL (134-434); RBC 4.12 10^6/uL (3.60-5.2); RDW 13.2 % (11.6-15.6)
[2022-10-13 19:45] LABS: HCG,QUALITATIVE URINE Negative
[2022-10-13 20:15] LABS: ANION GAP 7 MMOL/L (8-16); CALCIUM 9.2 mg/dl (8.5-10); CHLORIDE 102 mmol/L (98-107); CO2 23 mmol/L (21-32); GLUCOSE,RANDOM 89 mg/dl (74-106); SODIUM 132 mmol/L (136-145)
[2022-10-13 20:22] LABS: ALK PHOS 40 U/L (45-117); BILIRUBIN,TOTAL 0.7 mg/dl (0.2-1); CREATININE 0.7 mg/dl (0.55-1.3); SGOT/AST 16 U/L (15-37); SGPT/ALT 15 U/L (13-61); TOT PROT 7.2 g/dl (6.4-8.2)
[2022-10-13] MEDS ORDERED: POTASSIUM CHLORIDE TABS 20 MEQ TABLET.ER (FP) PO ONE ×2 (20:22→20:37)
== END 2022-10-13 20:52 | disposition home or self-care (01) ==
LOC: FER 18:35
PROC: 3E0337Z Introduction of Electrolytic and Water Balance Substance into Peripheral Vein, Percutaneous Approach (ICD-10-PCS; principal; 2022-10-13)
DX: R42 Dizziness and giddiness (principal)
CPT/HCPCS: 36415; 71045-TC-FY; 80053; 81003; 84484; 84703; 85027; 93005; 99284-25

== ENCOUNTER 2022-11-11 08:24 | Emergency (ER) | payer BC ==
[2022-11-11 08:36] VITALS: BP 124/81; PULSE 89; RESP 18; TEMP 98.2; BMI 26.6
[2022-11-11] MEDS ORDERED: FAMOTIDINE 20 MG/50 ML IVPB 20 MG/50 ML MG IVPB ONE ×2 (08:47→09:15)
[2022-11-11] MEDS ORDERED: ACETAMINOPHEN 1000 MG/100 ML BAG IVPB ONE (08:47)
[2022-11-11] MEDS ORDERED: SODIUM CHLORIDE 1,000 ML IV STA (08:47)
[2022-11-11] MEDS ORDERED: METOCLOPRAMIDE HCL INJECTION 10 MG/2 ML VIAL IVPUSH ONE (08:47)
[2022-11-11] MEDS ORDERED: METOCLOPRAMIDE HCL INJECTION 10 MG/2 ML VIAL ONE (08:54)
[2022-11-11] MEDS ORDERED: ACETAMINOPHEN INJECTION 100 ML IVPB ONE (08:54)
[2022-11-11 09:32] LABS: HEMATOCRIT 40.1 % (32.4-45.2); HEMOGLOBIN 13.7 G/dL (10.7-15.3); MCH 29.9 pg (25.7-33.7); MCHC 34.1 g/dl (32.0-36.0); MEAN CELL VOLUME 87.8 fl (80-96); MEAN PLT VOLUME 8.7 fl (7.5-11.1); PLATELET COUNT 229.3 10^3/uL (134-434); RBC 4.57 10^6/uL (3.60-5.2); WHITE BLOOD COUNT 6.3 10^3/uL (4.0-10.8)
[2022-11-11 09:40] LABS: BILIRUBIN,TOTAL 0.8 mg/dl (0.2-1); CALCIUM 9.1 mg/dl (8.5-10); CREATININE 0.8 mg/dl (0.55-1.3); TOT PROT 7.4 g/dl (6.4-8.2)
[2022-11-11 09:41] LABS: BILIRUBIN,DIRECT 0.1 mg/dL (0.0-0.2)
[2022-11-11 10:09] LABS: EPITHELIAL CELLS MODERATE /hpf
[2022-11-11 10:14] LABS: PLATELET ESTIMATE ADEQUATE
== END 2022-11-11 12:40 | disposition home or self-care (01) ==
LOC: FER 08:24
PROC: 3E0333Z Introduction of Anti-inflammatory into Peripheral Vein, Percutaneous Approach (ICD-10-PCS; principal; 2022-11-11)
PROC: 3E033GC Introduction of Other Therapeutic Substance into Peripheral Vein, Percutaneous Approach (ICD-10-PCS; 2022-11-11)
PROC: 3E033GC Introduction of Other Therapeutic Substance into Peripheral Vein, Percutaneous Approach (ICD-10-PCS; 2022-11-11)
PROC: 3E0337Z Introduction of Electrolytic and Water Balance Substance into Peripheral Vein, Percutaneous Approach (ICD-10-PCS; 2022-11-11)
DX: N83.8 Other noninflammatory disorders of ovary, fallopian tube and broad ligament (principal); R10.9 Unspecified abdominal pain
CPT/HCPCS: 36415; 74177-TC; 80053; 81003; 81015; 81025; 82248; 83690; 85025; 87086; 99285-25; Q9967

== ENCOUNTER 2023-01-18 10:29 | Emergency (ER) | payer BC ==
[2023-01-18 10:41] VITALS: BP 118/85; PULSE 105; RESP 16; TEMP 98.5; BMI 25.8
[2023-01-18] MEDS ORDERED: FAMOTIDINE 20 MG/50 ML IVPB 20 MG/50 ML MG IVPB ONE ×2 (10:54→11:10)
[2023-01-18] MEDS ORDERED: ONDANSETRON 4 MG/2 ML VIAL IVPUSH ONE (10:54)
[2023-01-18] MEDS ORDERED: LACTATED RINGERS SOLUTION 1,000 ML/1,000 ML INFUS.BAG IV SCH (11:00)
[2023-01-18] MEDS ORDERED: ONDANSETRON 4 MG/2 ML VIAL ONE (11:10)
[2023-01-18 11:43] LABS: EPITHELIAL CELLS FEW /hpf
[2023-01-18 11:48] LABS: HEMATOCRIT 41.9 % (32.4-45.2); HEMOGLOBIN 14.9 G/dL (10.7-15.3); MCHC 35.7 g/dl (32.0-36.0); MEAN PLT VOLUME 8.8 fl (7.5-11.1); RBC 4.82 10^6/uL (3.60-5.2); WHITE BLOOD COUNT 11.6 10^3/uL (4.0-10.8)
[2023-01-18 11:55] LABS: ALBUMIN 4.3 g/dl (3.4-5.0); BILIRUBIN,TOTAL 0.8 mg/dl (0.2-1); CALCIUM 9.7 mg/dl (8.5-10); CREATININE 0.7 mg/dl (0.55-1.3); TOT PROT 7.7 g/dl (6.4-8.2)
[2023-01-18 12:13] LABS: PLATELET ESTIMATE ADEQUATE
== END 2023-01-18 12:55 | disposition home or self-care (01) ==
LOC: FER 10:29
PROC: 3E033GC Introduction of Other Therapeutic Substance into Peripheral Vein, Percutaneous Approach (ICD-10-PCS; principal; 2023-01-18)
PROC: 3E033GC Introduction of Other Therapeutic Substance into Peripheral Vein, Percutaneous Approach (ICD-10-PCS; 2023-01-18)
DX: R10.13 Epigastric pain (principal); R19.7 Diarrhea, unspecified
CPT/HCPCS: 0241U-QW; 36415; 80053; 81003; 81015; 83690; 85027; 87086; 99284-25

== ENCOUNTER 2023-01-25 15:10 | Emergency (ER) | payer BC ==
[2023-01-25 15:34] VITALS: BP 138/98; PULSE 100; RESP 18; TEMP 98.7; BMI 25.8
[2023-01-25 15:46] LABS: EPITHELIAL CELLS MODERATE /hpf
[2023-01-25] MEDS ORDERED: CEPHALEXIN MONOHYDRATE 500 MG CAPSULE (UD) PO ONE (16:01)
[2023-01-25] MEDS ORDERED: CEPHALEXIN MONOHYDRATE 500 MG CAPSULE (UD) ONE (16:04)
== END 2023-01-25 16:12 | disposition home or self-care (01) ==
LOC: FER 15:10
DX: R31.9 Hematuria, unspecified (principal)
CPT/HCPCS: 81003; 81015; 84703; 87086; 99283-25

== ENCOUNTER 2023-06-10 12:17 | Emergency (ER) | payer BC ==
[2023-06-10 12:25] VITALS: BP 134/96; PULSE 92; RESP 18; TEMP 97.4; BMI 26.6
[2023-06-10] MEDS ORDERED: SODIUM CHLORIDE 0.9% 1000 ML INFUS.BAG IV ONE ×2 (12:40→13:58)
[2023-06-10] MEDS ORDERED: ACETAMINOPHEN 1000 MG/100 ML BAG IVPB ONE (12:40)
[2023-06-10] MEDS ORDERED: ONDANSETRON 4 MG/2 ML VIAL IVPUSH ONE (12:40)
[2023-06-10] MEDS ORDERED: FAMOTIDINE 20 MG/50 ML IVPB 20 MG/50 ML MG IVPB ONE ×2 (12:41→12:46)
[2023-06-10] MEDS ORDERED: LACTOBACILLUS ACIDOPHILUS 1 TABLET PO ONE (12:41)
[2023-06-10] MEDS ORDERED: ONDANSETRON 4 MG/2 ML VIAL ONE (12:46)
[2023-06-10] MEDS ORDERED: ACETAMINOPHEN INJECTION 100 ML IVPB ONE (12:46)
[2023-06-10 13:36] LABS: HEMATOCRIT 40.7 % (32.4-45.2); HEMOGLOBIN 13.8 G/dL (10.7-15.3); MCH 30.4 pg (25.7-33.7); MCHC 33.8 g/dl (32.0-36.0); MEAN CELL VOLUME 89.9 fl (80-96); MEAN PLT VOLUME 9.3 fl (7.5-11.1); PLATELET COUNT 244.4 10^3/uL (134-434); RBC 4.53 10^6/uL (3.60-5.2); RDW 13.6 % (11.6-15.6); WHITE BLOOD COUNT 6.8 10^3/uL (4.0-10.8)
[2023-06-10 13:46] LABS: ALBUMIN 4.7 g/dl (3.4-5.0); BILIRUBIN,TOTAL 0.5 mg/dl (0.2-1); BLOOD UREA NITROGEN 11.6 mg/dl (7-18); CALCIUM 9.9 mg/dl (8.5-10.1); CREATININE 0.8 mg/dl (0.6-1.3); POTASSIUM 4.2 mmol/L (3.5-5.1); SGOT/AST 14.2 U/L (15-37); SGPT/ALT 15.9 U/L (7-52); TOT PROT 7.1 g/dl (6.4-8.2)
== END 2023-06-10 14:54 | disposition home or self-care (01) ==
LOC: FER 12:17
PROC: 3E033GC Introduction of Other Therapeutic Substance into Peripheral Vein, Percutaneous Approach (ICD-10-PCS; principal; 2023-06-10)
PROC: 3E033GC Introduction of Other Therapeutic Substance into Peripheral Vein, Percutaneous Approach (ICD-10-PCS; 2023-06-10)
PROC: 3E033GC Introduction of Other Therapeutic Substance into Peripheral Vein, Percutaneous Approach (ICD-10-PCS; 2023-06-10)
DX: R10.84 Generalized abdominal pain (principal); R11.0 Nausea; R19.7 Diarrhea, unspecified
CPT/HCPCS: 36415; 80053; 85027; 99284-25

== ENCOUNTER 2023-06-15 13:51 | Emergency (ER) | payer BC ==
[2023-06-15] MEDS ORDERED: LACTATED RINGERS SOLUTION 1000 ML INFUS.BAG IV ONE (14:09)
[2023-06-15] MEDS ORDERED: MAG HYDROX/AL HYDROX/SIMETH 30 ML UNIT-DOSE CUP PO ONE (14:09)
[2023-06-15] MEDS ORDERED: ONDANSETRON 4 MG/2 ML VIAL IVPUSH ONE (14:09)
[2023-06-15] MEDS ORDERED: ACETAMINOPHEN 1000 MG/100 ML BAG IVPB ONE (14:09)
[2023-06-15] MEDS ORDERED: FAMOTIDINE 20 MG/50 ML IVPB 20 MG/50 ML MG IVPB ONE ×2 (14:09→14:26)
[2023-06-15 14:10] VITALS: RESP 18; BMI 25.8
[2023-06-15] MEDS ORDERED: MAG HYDROX/AL HYDROX/SIMETH 30 ML UNIT-DOSE CUP ONE (14:26)
[2023-06-15] MEDS ORDERED: ONDANSETRON 4 MG/2 ML VIAL ONE (14:26)
[2023-06-15] MEDS ORDERED: ACETAMINOPHEN INJECTION 100 ML IVPB ONE (14:26)
[2023-06-15 15:06] LABS: HEMATOCRIT 42.1 % (32.4-45.2); HEMOGLOBIN 14.6 G/dL (10.7-15.3); MCHC 34.7 g/dl (32.0-36.0); MEAN CELL VOLUME 89.4 fl (80-96); MEAN PLT VOLUME 8.1 fl (7.5-11.1); PLATELET COUNT 264.2 10^3/uL (134-434); RBC 4.71 10^6/uL (3.60-5.2); RDW 13.7 % (11.6-15.6); WHITE BLOOD COUNT 8.6 10^3/uL (4.0-10.8)
[2023-06-15 15:06] LABS: ALBUMIN 5.1 g/dl (3.4-5.0); BILIRUBIN,TOTAL 0.6 mg/dl (0.2-1); BLOOD UREA NITROGEN 10.5 mg/dl (7-18); CALCIUM 10.3 mg/dl (8.5-10.1); POTASSIUM 3.7 mmol/L (3.5-5.1); SGOT/AST 12.9 U/L (15-37); SGPT/ALT 13.6 U/L (7-52); TOT PROT 7.7 g/dl (6.4-8.2)
[2023-06-15 15:25] LABS: EPITHELIAL CELLS FEW /hpf
[2023-06-15 15:38] LABS: PLATELET ESTIMATE ADEQUATE
[2023-06-15] MEDS ORDERED: levoFLOXacin 750 MG TABLET PO ONE (16:30)
[2023-06-15 16:34] VITALS: BP 129/91; PULSE 89; TEMP 98
== END 2023-06-15 16:47 | disposition home or self-care (01) ==
LOC: FER 13:51
PROC: 3E033GC Introduction of Other Therapeutic Substance into Peripheral Vein, Percutaneous Approach (ICD-10-PCS; principal; 2023-06-15)
DX: K52.9 Noninfective gastroenteritis and colitis, unspecified (principal)
CPT/HCPCS: 0241U-QW; 36415; 71046-TC-FY; 74177-TC; 80053; 81003; 81015; 83605; 83690; 83735; 84703; 85027; 87086; 99285-25; Q9967

== ENCOUNTER 2023-12-27 10:37 | Emergency (ER) | payer BC ==
[2023-12-27 10:48] VITALS: BP 126/90; PULSE 90; RESP 20; TEMP 98; BMI 26.6
== END 2023-12-27 11:01 | disposition home or self-care (01) ==
LOC: FER 10:37
DX: R05.9 Cough, unspecified (principal); R09.81 Nasal congestion; J02.9 Acute pharyngitis, unspecified; H92.09 Otalgia, unspecified ear; J06.9 Acute upper respiratory infection, unspecified; Z20.822 Contact with and (suspected) exposure to COVID-19
CPT/HCPCS: 0241U-QW; 99283-25

== ENCOUNTER 2024-02-09 08:38 | Emergency (ER) | payer BC ==
[2024-02-09] MEDS ORDERED: FAMOTIDINE 20 MG/50 ML IVPB 20 MG/50 ML MG IVPB ONE ×3 (08:48→10:17)
[2024-02-09 08:52] VITALS: BP 127/78; PULSE 97; RESP 20; TEMP 98.5; BMI 26.1
[2024-02-09] MEDS ORDERED: ACETAMINOPHEN INJECTION 100 ML IVPB ONE ×2 (08:59→10:17)
[2024-02-09] MEDS ORDERED: ONDANSETRON 4 MG/2 ML VIAL ONE (08:59)
[2024-02-09] MEDS ORDERED: MAG HYDROX/AL HYDROX/SIMETH 30 ML UNIT-DOSE CUP ONE ×2 (09:00→10:17)
[2024-02-09] MEDS: SODIUM CHLORIDE 0.9% 500 ML INFUS.BAG IV ONE (09:29)
[2024-02-09] MEDS: MAG HYDROX/AL HYDROX/SIMETH 30 ML UNIT-DOSE CUP PO ONE (09:29)
[2024-02-09] MEDS: ACETAMINOPHEN 1000 MG/100 ML BAG IVPB ONE (09:30)
[2024-02-09] MEDS: ONDANSETRON 4 MG/2 ML VIAL IVPUSH ONE (09:30)
[2024-02-09 09:34] LABS: HEMATOCRIT 41.6 % (32.4-45.2); HEMOGLOBIN 13.3 G/dL (10.7-15.3); MCH 28.9 pg (25.7-33.7); MEAN CELL VOLUME 90.2 fl (80-96); MEAN PLT VOLUME 8.3 fl (7.5-11.1); PLATELET COUNT 275.6 10^3/uL (134-434); RBC 4.61 10^6/uL (3.60-5.2); WHITE BLOOD COUNT 11.4 10^3/uL (4.0-10.8)
[2024-02-09 09:37] LABS: HCG,QUALITATIVE URINE Negative
[2024-02-09 09:51] LABS: EPITHELIAL CELLS 0-5 /hpf; URINE HYALINE CAST 0-1 /lpf; URINE MUCUS FEW
[2024-02-09 10:12] LABS: POTASSIUM 3.9 mmol/L (3.5-5.1)
[2024-02-09 10:14] LABS: CALCIUM 9.4 mg/dL (8.5-10.1)
[2024-02-09 10:15] LABS: ALBUMIN 3.5 g/dl (3.4-5.0); BLOOD UREA NITROGEN 11.8 mg/dL (7-18)
[2024-02-09 10:18] LABS: CREATININE 0.8 mg/dL (0.55-1.3)
[2024-02-09 10:19] LABS: BILIRUBIN,TOTAL 0.3 mg/dL (0.2-1); TOT PROT 6.7 g/dl (6.4-8.2)
== END 2024-02-09 10:45 | disposition home or self-care (01) ==
LOC: FER 08:38
PROC: 3E030NZ Introduction of Analgesics, Hypnotics, Sedatives into Peripheral Vein, Open Approach (ICD-10-PCS; principal; 2024-02-09)
PROC: 3E030GC Introduction of Other Therapeutic Substance into Peripheral Vein, Open Approach (ICD-10-PCS; 2024-02-09)
DX: R10.9 Unspecified abdominal pain (principal); R19.7 Diarrhea, unspecified; R11.0 Nausea
CPT/HCPCS: 36415; 80053; 81003; 81015; 83690; 84703; 85025; 87086; 99284-25; J0131

== ENCOUNTER 2024-02-15 12:31 | Emergency (ER) | payer BC ==
[2024-02-15 12:42] VITALS: BP 126/91; PULSE 90; RESP 16; TEMP 98.3; BMI 26.1
[2024-02-15] MEDS ORDERED: ACETAMINOPHEN 325 MG TABLET (FP) ONE (13:32)
[2024-02-15] MEDS ORDERED: ONDANSETRON 4 MG/2 ML VIAL ONE (13:32)
[2024-02-15] MEDS ORDERED: MAG HYDROX/AL HYDROX/SIMETH 30 ML UNIT-DOSE CUP ONE (13:33)
[2024-02-15] MEDS ORDERED: FAMOTIDINE 20 MG/50 ML IVPB 20 MG/50 ML MG IVPB ONE (13:33)
[2024-02-15] MEDS: ACETAMINOPHEN 325 MG TABLET (FP) PO ONE (13:45)
[2024-02-15] MEDS: FAMOTIDINE 20 MG/50 ML IVPB 20 MG/50 ML MG IVPB ONE (13:45)
[2024-02-15] MEDS: ONDANSETRON 4 MG/2 ML VIAL IVPUSH ONE (13:45)
[2024-02-15] MEDS: MAG HYDROX/AL HYDROX/SIMETH -MYLANTA- ORAL SUSPENSION PO ONE (13:45)
[2024-02-15 13:46] LABS: HEMATOCRIT 38.4 % (32.4-45.2); MCH 30.2 pg (25.7-33.7); MEAN PLT VOLUME 8.8 fl (7.5-11.1); PLATELET COUNT 219.2 10^3/uL (134-434); RBC 4.32 10^6/uL (3.60-5.2); RDW 13.9 % (11.6-15.6)
[2024-02-15] MEDS: LACTATED RINGERS SOLUTION 1,000 ML/1,000 ML INFUS.BAG IV STA (13:47)
[2024-02-15 14:02] LABS: ALBUMIN 4.6 g/dl (3.4-5.0); BILIRUBIN,TOTAL 0.6 mg/dl (0.2-1); CALCIUM 10.1 mg/dl (8.5-10.1); CREATININE 0.7 mg/dl (0.6-1.3); POTASSIUM 3.8 mmol/L (3.5-5.1); TOT PROT 7.1 g/dl (6.4-8.2)
[2024-02-15] MEDS: LIDOCAINE VISCOUS 2% ORAL/TOP 15 ML UNIT-DOSE CUP MM ONE (16:23)
== END 2024-02-15 16:47 | disposition home or self-care (01) ==
LOC: FER 12:31
PROC: 3E033GC Introduction of Other Therapeutic Substance into Peripheral Vein, Percutaneous Approach (ICD-10-PCS; principal; 2024-02-15)
PROC: 3E033GC Introduction of Other Therapeutic Substance into Peripheral Vein, Percutaneous Approach (ICD-10-PCS; 2024-02-15)
PROC: 3E0337Z Introduction of Electrolytic and Water Balance Substance into Peripheral Vein, Percutaneous Approach (ICD-10-PCS; 2024-02-15)
DX: R10.11 Right upper quadrant pain (principal); R10.13 Epigastric pain; R11.2 Nausea with vomiting, unspecified; R19.7 Diarrhea, unspecified
CPT/HCPCS: 36415; 76705-TC; 80053; 83690; 85025; 99284-25

== ENCOUNTER 2024-03-03 09:28 | Day surgery (SDC) | payer BC ==
[2024-02-26 12:20] VITALS: BMI 25.5
[2024-03-03] MEDS ORDERED: PHENYLEPHRINE HCL 10 MG/1 ML SINGLE DOSE VIAL ONE (09:57)
[2024-03-03 11:58] VITALS: BP 105/70; PULSE 76; RESP 19; TEMP 98
== END 2024-03-03 12:00 | disposition home or self-care (01) ==
LOC: FASU-ENDO 09:28
PROVIDERS: ATTEND Internal Medicine Gastroenterology
PROC: 0DBL8ZX Excision of Transverse Colon, Via Natural or Artificial Opening Endoscopic, Diagnostic (ICD-10-PCS; 2024-03-03)
PROC: 0DBP8ZX Excision of Rectum, Via Natural or Artificial Opening Endoscopic, Diagnostic (ICD-10-PCS; 2024-03-03)
PROC: 0DBB8ZX Excision of Ileum, Via Natural or Artificial Opening Endoscopic, Diagnostic (ICD-10-PCS; 2024-03-03)
PROC: 0DB98ZX Excision of Duodenum, Via Natural or Artificial Opening Endoscopic, Diagnostic (ICD-10-PCS; 2024-03-03)
PROC: 0DB68ZX Excision of Stomach, Via Natural or Artificial Opening Endoscopic, Diagnostic (ICD-10-PCS; 2024-03-03)
PROC: 0DB48ZX Excision of Esophagogastric Junction, Via Natural or Artificial Opening Endoscopic, Diagnostic (ICD-10-PCS; 2024-03-03)
PROC: 0DBK8ZX Excision of Ascending Colon, Via Natural or Artificial Opening Endoscopic, Diagnostic (ICD-10-PCS; principal; 2024-03-03 10:44)
DX: K31.7 Polyp of stomach and duodenum (principal); K29.50 Unspecified chronic gastritis without bleeding; K20.90 Esophagitis, unspecified without bleeding; R10.13 Epigastric pain; R10.9 Unspecified abdominal pain; R19.7 Diarrhea, unspecified; R97.0 Elevated carcinoembryonic antigen [CEA]; K64.1 Second degree hemorrhoids
CPT/HCPCS: 81025; 88305-TC; 88342-TC

== ENCOUNTER 2024-08-29 03:32 | Emergency (ER) | payer BC ==
[2024-08-29] MEDS ORDERED: ONDANSETRON 4 MG/2 ML VIAL ONE (03:59)
[2024-08-29] MEDS ORDERED: FAMOTIDINE 20 MG/50 ML IVPB 20 MG/50 ML MG IVPB ONE (04:00)
[2024-08-29] MEDS ORDERED: ACETAMINOPHEN INJECTION 100 ML ONE (04:00)
[2024-08-29] MEDS: FAMOTIDINE 20 MG/50 ML IVPB 20 MG/50 ML MG IVPB ONE (04:12)
[2024-08-29] MEDS: ACETAMINOPHEN 1000 MG/100 ML BAG IVPB ONE (04:12)
[2024-08-29] MEDS: SODIUM CHLORIDE 1,000 ML IV STA ×2 (04:12→05:30)
[2024-08-29] MEDS: ONDANSETRON 4 MG/2 ML VIAL IVPUSH ONE (04:12)
[2024-08-29 04:19] VITALS: BP 118/92; PULSE 104; RESP 18; TEMP 97.9; BMI 25.0
[2024-08-29 04:38] LABS: HEMOGLOBIN 13.7 GM/dL (10.7-15.3); NEUT % 87.9 % (42.8-82.8)
[2024-08-29 04:43] LABS: BASO % 0.2 % (0-2.0); EOS % 1.2 % (0-4.5); LYMPH % 6.3 % (8-40); MCH 28.7 pg (25.7-33.7); MCHC 33.4 g/dl (32.0-36.0); MEAN CELL VOLUME 85.9 fl (80-96); MONO % 4.4 % (3.8-10.2); PLATELET COUNT 249 10^3/uL (134-434); RBC 4.77 M/mm3 (3.60-5.2); RDW 13.7 % (11.6-15.6); WHITE BLOOD COUNT 13.2 K/mm3 (4.0-10.0)
[2024-08-29 05:02] LABS: CALCIUM 9.9 mg/dL (8.5-10.1)
[2024-08-29 05:03] LABS: ALBUMIN 4.1 g/dl (3.4-5.0); BLOOD UREA NITROGEN 17.4 mg/dL (7-18)
[2024-08-29 05:06] LABS: CREATININE 0.9 mg/dL (0.55-1.3)
[2024-08-29 05:07] LABS: BILIRUBIN,TOTAL 0.8 mg/dL (0.2-1); TOT PROT 7.4 g/dl (6.4-8.2)
== END 2024-08-29 06:23 | disposition home or self-care (01) ==
LOC: FER 03:32
PROC: 3E033GC Introduction of Other Therapeutic Substance into Peripheral Vein, Percutaneous Approach (ICD-10-PCS; principal; 2024-08-29)
PROC: 3E033NZ Introduction of Analgesics, Hypnotics, Sedatives into Peripheral Vein, Percutaneous Approach (ICD-10-PCS; 2024-08-29)
PROC: 3E033GC Introduction of Other Therapeutic Substance into Peripheral Vein, Percutaneous Approach (ICD-10-PCS; 2024-08-29)
PROC: 3E0337Z Introduction of Electrolytic and Water Balance Substance into Peripheral Vein, Percutaneous Approach (ICD-10-PCS; 2024-08-29)
DX: K52.9 Noninfective gastroenteritis and colitis, unspecified (principal); R10.11 Right upper quadrant pain; R10.12 Left upper quadrant pain; R11.2 Nausea with vomiting, unspecified
CPT/HCPCS: 36415; 80053; 83690; 85025; 99284-25; J0131